=== PATIENT | male | born 1945 | race Caucasian/White ===

== ENCOUNTER 2016-07-10 20:08 | Emergency (ER) | payer MEDICARE ==
[~2016-07-10] VITALS: Ht 170.2 cm; Wt 84.1 kg
[~2016-07-10 20:08] MED LIST: ACET325T51 PEG; ARFO15VI2 IH; BUDE0.5A2 INHALATION; DILT90TA PEG; IPRA3AMP IH; LEVO75TA4 PEG; LISI10TA PEG; MONT10TA23 PEG; OMEP20CA11 PEG; ONDA4TAB9 PO; PRAV20TA2 PEG; TAMS0.4C98 PEG; WARF5TAB7 PEG; WARF7.5T4 PEG; ZIT250 PO
[2016-07-10 20:25] VITALS: BP 145/78; PULSE 95; RESP 18; O2SAT 96
[2016-07-10 21:00] LABS: APPEARANCE,URINE TURBID (CLEAR,HAZY); COLOR,URINE BLOODY (YELLOW); OCCULT BLOOD,URINE LARGE (NEGATIVE); UROBILINOGEN,URINE NORMAL (NORMAL)
--- NOTE | 2016-07-10 22:17 | ED.REPORT ---
HPI-General Illness Date of Service Jul 10, 2016 ED Provider: Dar Chaidez MD History of Present Illness: Patient is a 70 y.o. M with past medical history CVA, dysphagia requireing tub feedings, atrial fibrilation, CAD. He Presents to ED with his and son who report a two day history of urinary frequency, patient stated he felt a tickle with urination, family members noted blood in urine today. Assocaited with watery diarrhea without blood. Denies fever, chills, stomach pain, nausea, vomiting. Nursing Notes Stated Complaint: BLOOD IN URINE Chief Complaint: General Complaint Nursing Notes Reviewed: Yes Allergies: Coded Allergies: cephalexin (Verified Allergy, Intermediate, 07/10/16) quetiapine (Verified Allergy, Intermediate, 07/10/16) CONFUSION Scheduled Arformoterol Tartrate (Brovana) 15 Mcg/2 Ml Vial.neb 15 MCG IH BID Azithromycin (Zithromax) 250 Mg Tablet 500 MG PO DAILY Budesonide Neb Soln (Budesonide Neb Soln) 0.5 Mg/2 Ml Neb 2 ML INHALATION BID Ciprofloxacin (Ciprofloxacin) 250 Mg/5 Ml Kiara.mc.rec 250 MG PO BID Diltiazem (Diltiazem) 90 Mg Tablet 90 MG PEG QID Ipratropium/Albuterol Sulfate (Iprat-Albut 0.5-3(2.5) mg/3 mL Inhalant Soln) 3 Ml Ampul.neb 3 ML IH QID Levothyroxine (Levothyroxine) 75 Mcg Tablet 75 MCG PEG QAM Lisinopril (Lisinopril) 10 Mg Tablet 20 MG PEG QAM Montelukast (Montelukast) 10 Mg Tablet 10 MG PEG HS Omeprazole (Omeprazole) 20 Mg Capsule. 20 MG PEG BID Pravastatin (Pravastatin) 20 Mg Tablet 20 MG PEG HS Tamsulosin (Flomax) 0.4 Mg Capsule 0.4 MG PEG HS Warfarin Sodium (Warfarin Sodium) 5 Mg Tablet 5 MG PEG ,,, Warfarin Sodium (Warfarin Sodium) 7.5 Mg Tablet 7.5 MG PEG MWF Scheduled PRN Acetaminophen (Acetaminophen) 325 Mg Tablet 325 MG PEG Q4H PRN PRN For Pain Ondansetron ODT (Zofran ODT) 4 Mg Tablet 4 MG PO Q4H PRN PRN For Nausea General Time Seen by MD: 21:30 Chief Complaint Urinary frequency blood in urine noticed today by family Hx Obtained From: Spouse, Son Unable to Obtain Hx: Patient condition (dysphagic) Arrived By: Wheelchair Sudden in Onset?: Yes Onset Occurred: 2 days ago Symptom Duration: Since onset Severity: Current: No pain currently Severity: Maximum: No pain Past Medical History Past Medical History Dysphagia and Dysphasia secondary to CVA. (Patient with trach and PEG as a result) Atrial Fibrillation (on warfarin as of 05/31/15) HTN. Asthma. Reports: Asthma, Hypertension Past Surgical History Tracheostomy Percutaneous gastrostomy tube Reports: Cholecystectomy, Tonsillectomy Family History Reports: Coronary artery disease, Diabetes mellitus Smoking History Former Smoker Social History Alcohol Use: Denies alcohol use Other Social History: Good social support, , Local resident Ambulatory Status Wheelchair Review of Systems A comprehensive review of systems was conducted with the patient and found to be negative except as above in the History of Present Illness. Unable to Obtain ROS Patient condition Full Review of Systems Constitutional: Reports: Chills, Fever, Denies: Fatigue Respiratory: Reports: Prod cough, clear, Denies: Dyspnea on exertion, Hemoptysis Cardiovascular: Reports: Orthopnea, Palpitations, Parox nocturnal dyspnea, Denies: Chest pain, Dyspnea on exertion, Edema GI: Reports: Diarrhea, Denies: Abdominal pain, Bloody/tarry stool, Nausea, Vomiting Male: Reports Dysuria, Reports Hematuria, Reports Urinary frequency, Reports Urinary urgency, Denies Flank pain Complete sys rev & neg: except as marked. Physical Exam Vital Signs Vital Signs Date Time Temp Pulse Resp B/P Pulse Ox O2 Delivery O2 Flow Rate FiO2 07/10/16 23:47 37.3 85 18 138/95 95 Room Air 07/10/16 22:42 37.3 85 18 138/95 95 Room Air 07/10/16 20:25 37.0 95 18 145/78 96 Room Air General/Constitutional: Well-developed, Well-nourished Head / Eyes: Atraumatic, Normocephalic, PERRL ENT: Mucous membranes moist, Conjunctiva normal, No scleral icterus Neck: Supple, Non-tender, Full range of motion Respiratory: Breath sounds normal, No respiratory distress Cardiovascular: Regular rate & rhythm, Heart sounds normal, Intact distal pulses Abdomen / GI: Soft, Non-tender, No guarding, No rebound Back: No CVA tenderness Skin: Warm, Dry, No cyanosis Neurologic: Alert, Oriented, Nonfocal Tracheostomy present patent without erythema PEG tube present, patent no erythema noted Interpretation & Diagnostics Lab Results Interpretation Result Diagram: 07/10/16221907/10/162219 Test 07/10/16 20:39 07/10/16 22:20 Urine Color Bloody (YELLOW) Urine Appearance Turbid (CLEAR,HAZY) Urine pH 7.0 (5.0-8.0) Urine Specific [place] 1.010 (1.003-1.035) Urine Protein 100mg/dL (NEG,TRACE) Urine Glucose (UA) Negativemg/dL (NEGATIVE) Urine Ketones Negativemg/dL (NEGATIVE) Urine Occult Blood Large (NEGATIVE) Urine Nitrite Negative (NEGATIVE) Urine Bilirubin Negative (NEGATIVE) Urine Urobilinogen Normalmg/dL (NORMAL) Urine Leukocyte Esterase Moderate (NEGATIVE) Urine RBC >50/hpf (0-2) Urine WBC 11-50/hpf (0-5) Urine Epithelial Cells Occasional/hpf (NONE-MOD) Urine Crystals None seen (NONE SEEN) Urine Bacteria Many/hpf (NONE-FEW) Urine Hyaline Casts None/lpf (NONE) Urine Granular Casts None seen (NONE SEEN) Urine Waxy Casts None seen (NONE SEEN) Urine Red Blood Cell Casts None seen (NONE SEEN) Urine White Blood Cell Casts None seen (NONE SEEN) Urine Mucus None seen (None Seen) Urine Trichomonas None seen (NONE SEEN) Urine Yeast None (NONE SEEN) Urinalysis Comment None Urine Culture Reflexed Indicated White Blood Count 12.5th/mm3 (3.8-10.1) Red Blood Count 4.76mil/mm3 (4.40-5.80) Hemoglobin 15.9g/dL (13.8-17.2) Hematocrit 46.6% (41.0-50.0) Mean Corpuscular Volume 97.9fL (81-100) Mean Corpuscular Hemoglobin 33.4pg (27.0-35.0) Mean Corpuscular Hemoglobin Concent 34.1% (32.0-37.0) Red Cell Distribution Width 12.9% (12.3-15.4) Platelet Count 156bil/L (150-400) Neutrophils (%) (Auto) 81.5% (40-74) Lymphocytes (%) (Auto) 9.9% (14-46) Monocytes (%) (Auto) 7.6% (4-12) Eosinophils (%) (Auto) 0.6% (0-5) Basophils (%) (Auto) 0.2% (0-3) Sodium Level 133mEq/L (134-144) Potassium Level 4.5mEq/L (3.5-5.2) Chloride Level 94mEq/L (97-108) Carbon Dioxide Level 27mmol/L (18-29) Blood Urea Nitrogen 17mg/dL (8-27) Creatinine 0.51mg/dL (0.76-1.27) Estimat Glomerular Filtration Rate 171mL/min (>59) Glucose Level 123mg/dL (60-99) Calcium Level 8.8mg/dL (8.5-10.1) Total Bilirubin 0.4mg/dL (0.0-1.2) Aspartate Amino Transf (AST/SGOT) 29U/L (0-50) Alanine Aminotransferase (ALT/SGPT) 25U/L (0-44) Alkaline Phosphatase 149U/L (25-160) Total Protein 6.7g/dL (6.4-8.4) Albumin 3.5g/dL (3.4-5.0) Hold Juan Top Tube Received (Received) Re-Eval/Medical Decision Med Decision/Clinical Course Patient is a 70 y.o. M with past medical history CVA, dysphagia requireing tub feedings, atrial fibrilation, CAD. Presents to ED with two day history of urinary frequency, patient stated he felt a tickle with urination, family members noted blood in urine today. 1. Blood in Urine DDx UTI, Kidney stone, maligancy r/o ANJU, CBC ordered, show signs of acute infection CMP ordered good kidney function GFR 171 UA with culture ordered, showed presence of bacturia Bladder scan ordered residual 87 ml Counseled Regarding: Diagnosis, Lab results, Need for follow-up, When/why to return to ED Discharge & Departure Primary Impression: UTI (urinary tract infection) Urinary tract infection type: acute cystitis Hematuria presence: with hematuria Qualified Code: N30.01 - Acute cystitis with hematuria Disposition: Home Discharge Condition All VS Reviewed: Yes Condition: Stable Additional Instructions: During your visit to [facility] we obtained blood work for infectious markers, hemoglobin levels, and electrolytes. Analysis of your urine showed presence of a urinary tract infection. We obtained scan of your bladder to determine if you are voiding completely. We will send you home with - 10 day course of Antibiotics (Ciprofloxacin) oral suspension Follow up with your PCP in one week. Do not hesitate to call emergency services or your primary care physician if you experience any of the following. -High unrelenting fevers. -Uncontrolled vomiting. -Severe hypertension. -Syncope or loss of consciousness. -Chest pain or severe shortness of breath. Referrals: Antony Bojorquez MD (PCP) 1 Week Attending Statement The patient was seen and examined together with Dr. Moody on 07/10/16 and I agree with the history, exam and plan as outlined in the note above. copies to: Antony Bojorquez MD, AARON J DO Jul 10, 2016 21:57 Dar Chaidez MD Jul 10, 2016 23:56
[2016-07-10 22:32] LABS: BASOPHILS % (AUTO) 0.2 % (0-3); EOSINOPHILS % (AUTO) 0.6 % (0-5); MONOCYTES % (AUTO) 7.6 % (4-12); Mean Corpuscular Hemoglobin 33.4 pg (27.0-35.0); Mean Corpuscular Volume 97.9 fL (81-100); NEUTROPHILS % (AUTO) 81.5 % (40-74); Platelet Count 156 bil/L (150-400)
[2016-07-10 22:42] VITALS: BP 138/95; PULSE 85; RESP 18; O2SAT 95
[2016-07-10] MEDS ORDERED: CIPR250S3 PO ×2 (23:23→23:34)
[2016-07-10 23:47] VITALS: BP 138/95; PULSE 85; RESP 18; O2SAT 95
== END 2016-07-10 23:47 | disposition home or self-care (01) ==
LOC: SED 20:08
DX: N30.01 Acute cystitis with hematuria (principal); B96.89 Other specified bacterial agents as the cause of diseases classified elsewhere; R19.7 Diarrhea, unspecified; I69.991 Dysphagia following unspecified cerebrovascular disease; I69.921 Dysphasia following unspecified cerebrovascular disease; I11.9 Hypertensive heart disease without heart failure; I48.91 Unspecified atrial fibrillation; J45.909 Unspecified asthma, uncomplicated; Z79.01 Long term (current) use of anticoagulants; Z87.891 Personal history of nicotine dependence

== ENCOUNTER 2016-09-08 15:43 | Emergency (ER) | payer MEDICARE ==
[~2016-09-08] VITALS: Ht 170.2 cm; Wt 76.4 kg
[~2016-09-08 15:43] MED LIST changes: +CIPR250S3 PO
[2016-09-08 16:05] VITALS: BP 135/76; PULSE 103; RESP 14; O2SAT 96
--- NOTE | 2016-09-08 16:50 | ED.REPORT ---
HPI- Male Date of Service Sep 08, 2016 ED Provider: Kranthi Weiss MD A 70 year old male with a history of CVA, dysphagia requiring tube feedings, atrial fibrillation, CAD and hypertension presents to the ED complaining of hematuria that began 2 days ago. Associated symptoms include increased urinary urgency, decreased urination output, constipation and insomnia for the past few days. Patient reports several previous UTI's. Patient was recently seen in the ED on 07/10 for a UTI and was discharged in good condition with a 10 day course of Ciprofloxacin. He denies any dysuria, fever, abdominal pain, nausea or vomiting. Patient currently taking Warfarin. His last INR was 2.1. Nursing Notes Stated Complaint: POSS UTI Chief Complaint: General Complaint Nursing Notes Reviewed: Yes Allergies: Coded Allergies: cephalexin (Verified Allergy, Intermediate, 07/10/16) quetiapine (Verified Allergy, Intermediate, 07/10/16) CONFUSION Scheduled Arformoterol Tartrate (Brovana) 15 Mcg/2 Ml Vial.neb 15 MCG IH BID Azithromycin (Zithromax) 250 Mg Tablet 500 MG PO DAILY Budesonide Neb Soln (Budesonide Neb Soln) 0.5 Mg/2 Ml Neb 2 ML INHALATION BID Ciprofloxacin (Ciprofloxacin) 250 Mg/5 Ml Kiara.mc.rec 250 MG PO BID Diltiazem (Diltiazem) 90 Mg Tablet 90 MG PEG QID Ipratropium/Albuterol Sulfate (Iprat-Albut 0.5-3(2.5) mg/3 mL Inhalant Soln) 3 Ml Ampul.neb 3 ML IH QID Levothyroxine (Levothyroxine) 75 Mcg Tablet 75 MCG PEG QAM Lisinopril (Lisinopril) 10 Mg Tablet 20 MG PEG QAM Montelukast (Montelukast) 10 Mg Tablet 10 MG PEG HS Omeprazole (Omeprazole) 20 Mg Capsule.dr 20 MG PEG BID Pravastatin (Pravastatin) 20 Mg Tablet 20 MG PEG HS Sulfamethoxazole/Trimeth 800-160 mg (Bactrim DS) 1 Each Tablet 1 TABLET PO BID Tamsulosin (Flomax) 0.4 Mg Capsule 0.4 MG PEG HS Warfarin Sodium (Warfarin Sodium) 5 Mg Tablet 5 MG PEG Vincent,,Th,Sa Warfarin Sodium (Warfarin Sodium) 7.5 Mg Tablet 7.5 MG PEG MWF Scheduled PRN Acetaminophen (Acetaminophen) 325 Mg Tablet 325 MG PEG Q4H PRN PRN For Pain Ondansetron ODT (Zofran ODT) 4 Mg Tablet 4 MG PO Q4H PRN PRN For Nausea General Time Seen by MD: 16:47 Chief Complaint Other (Hematuria) Hx Obtained From: Patient Arrived By: Walk-in Onset Occurred: 2 days ago Symptom Duration: Since onset Associated with: Reports: UTI symptoms... (Hematuria), Denies: Abdominal pain, Nausea, Vomiting Pertinent Negative: Pt denies other symptoms Recent Healthcare: No recent doctor visit, No recent hospitalization Past Medical History Past Medical History Notes: PCP: Dr. Torres Past Medical History Dysphagia and Dysphasia secondary to CVA. (Patient with trach and PEG as a result) Atrial Fibrillation (on warfarin as of 05/31/15) Hypertension Asthma. Past Surgical History Tracheostomy Percutaneous gastrostomy tube Reports: Cholecystectomy, Tonsillectomy Family History Reports: Coronary artery disease, Diabetes mellitus Smoking History Former Smoker Social History Alcohol Use: Denies alcohol use Other Social History: Good social support, , Local resident Ambulatory Status Wheelchair Review of Systems Constitutional: Denies: Chills, Fever GI: Reports: Constipation, Denies: Abdominal pain, Nausea, Vomiting Male: Reports Hematuria, Reports Urinary urgency, Reports Urination decreased, Denies Dysuria Complete sys rev & neg: except as marked. Physical Exam Initial Vital Signs Vital Signs (First) Date Time Temp Pulse Resp B/P Pulse Ox O2 Delivery O2 Flow Rate FiO2 09/08/16 16:05 36.9 103 14 135/76 96 Room Air Initial VS: Reviewed Head / Eyes: Atraumatic, Normocephalic, PERRL Neck: Supple, Non-tender, Full range of motion Extremities: Vascular intact, Neuro intact, No swelling, No tenderness Skin: Warm, Dry, No cyanosis Neurologic: Alert, Oriented, Nonfocal Psychiatric: Mood/affect normal, Behavior normal, Normal thought content Male Genitourinary: Inspection NL, Penis NL (Uncircumcised ), Testes NL General/Constitutional: Awake, Alert, No acute distress Abdomen: Atraumatic, Soft, Non-tender ABDOMEN: No bladder distension Back: Atraumatic, Inspection NL, No CVA tenderness Interpretation & Diagnostics Lab Results Interpretation Result Diagram: 09/08/16 1706 Test 09/08/16 16:42 09/08/16 17:06 Urine Color Dark yellow (YELLOW) Urine Appearance Cloudy (CLEAR,HAZY) Urine pH 7.5 (5.0-8.0) Urine Specific [place] 1.015 (1.003-1.035) Urine Protein 100mg/dL (NEG,TRACE) Urine Glucose (UA) Negativemg/dL (NEGATIVE) Urine Ketones Negativemg/dL (NEGATIVE) Urine Occult Blood Large (NEGATIVE) Urine Nitrite Negative (NEGATIVE) Urine Bilirubin Negative (NEGATIVE) Urine Urobilinogen Normalmg/dL (NORMAL) Urine Leukocyte Esterase Small (NEGATIVE) Urine RBC Packed/hpf (0-2) Urine WBC 11-50/hpf (0-5) Urine Epithelial Cells Few/hpf (NONE-MOD) Urine Crystals None seen (NONE SEEN) Urine Bacteria None/hpf (NONE-FEW) Urine Hyaline Casts None/lpf (NONE) Urine Granular Casts None seen (NONE SEEN) Urine Waxy Casts None seen (NONE SEEN) Urine Red Blood Cell Casts None seen (NONE SEEN) Urine White Blood Cell Casts None seen (NONE SEEN) Urine Mucus None seen (None Seen) Urine Trichomonas None seen (NONE SEEN) Urine Yeast None (NONE SEEN) Urine Culture Reflexed Indicated White Blood Count 10.7th/mm3 (3.8-10.1) Red Blood Count 4.75mil/mm3 (4.40-5.80) Hemoglobin 15.7g/dL (13.8-17.2) Hematocrit 46.6% (41.0-50.0) Mean Corpuscular Volume 98.1fL (81-100) Mean Corpuscular Hemoglobin 33.1pg (27.0-35.0) Mean Corpuscular Hemoglobin Concent 33.7% (32.0-37.0) Red Cell Distribution Width 13.0% (12.3-15.4) Platelet Count 160bil/L (150-400) Neutrophils (%) (Auto) 84.1% (40-74) Lymphocytes (%) (Auto) 7.9% (14-46) Monocytes (%) (Auto) 6.9% (4-12) Eosinophils (%) (Auto) 0.7% (0-5) Basophils (%) (Auto) 0.2% (0-3) Prothrombin Time 19.8sec (8.1-12.5) Prothromb Time International Ratio 1.83ratio Hold Juan Top Tube Received (Received) Lab Results Interpretation: URINE DIP SP gravity 1.010 pH 7 Leukocytes + Nitrites + Proteins +++ Glucose normal Ketones + Urobilinogen - Bilirubin - Blood 250+ Hemoglobin 250 Re-Eval/Medical Decision Med Decision/Clinical Course 70 year old male with good renal function based on recent labs. Has cystitis, will treat with bactrimx5 days Re-Evaluation/Progress : Time of Eval: 18:20 Patient Status: Condition improved Re-Evaluation/Progress Note: Family is informed of the patient's lab results and intended treatment plan. All of the patient's 's questions are addressed. They agree with plan to discharge with antibiotics and follow up with PCP. Counseled Regarding: Diagnosis, Lab results, Need for follow-up, When/why to return to ED Discharge & Departure Impression: Primary Impression: UTI (urinary tract infection) Urinary tract infection type: site unspecified Hematuria presence: with hematuria Qualified Code: N39.0 - Urinary tract infection, site not specified Disposition: Home Discharge Condition All VS Reviewed: Yes Condition: Improved Patient Instructions: Urinary Tract Infection in Men (ED) Additional Instructions: Thank you for trusting us with your care this afternoon. Your emergency department evaluation today included interview, examination and lab work. Your lab results are indicative of a urinary tract infection and I believe this is the likely cause of your symptoms. We will start trimethoprim sulfa one twice daily for 5 days. get adequate fluids to keep urine dilute and keep clots from forming in bladder. We checked INR, it is 1.83, very close to desired range. You should follow-up with your primary doctor in the next week for a recheck. You should return to the ED immediately if you develop fever, chills, vomiting, inability to urinate or any other concerning signs or symptoms. Thank you for letting us partake in your care today. Referrals: Antony Bojorquez MD (PCP) Simone Torres MD Attestation Portions of this note were transcribed by Valerio Perrin. I, Dr. Weiss personally performed the history, physical exam and medical decision-making; I reviewed and confirmed the accuracy of the information in the transcribed note. Signed by: Freddie Bhatti, 09/08/16 [id number]. copies to: Simone Torres MD, Donald L MD Sep 08, 2016 16:50 VALERIO PERRIN Sep 08, 2016 16:57
[2016-09-08 17:16] LABS: APPEARANCE,URINE CLOUDY (CLEAR,HAZY); COLOR,URINE DARK YELLOW (YELLOW); PH,URINE 7.5 (5.0-8.0)
[2016-09-08 17:17] LABS: OCCULT BLOOD,URINE LARGE (NEGATIVE); UROBILINOGEN,URINE NORMAL (NORMAL)
[2016-09-08 17:19] LABS: BASOPHILS % (AUTO) 0.2 % (0-3); EOSINOPHILS % (AUTO) 0.7 % (0-5); MONOCYTES % (AUTO) 6.9 % (4-12); Mean Corpuscular Hemoglobin 33.1 pg (27.0-35.0); Mean Corpuscular Volume 98.1 fL (81-100); NEUTROPHILS % (AUTO) 84.1 % (40-74); Platelet Count 160 bil/L (150-400)
[2016-09-08 17:35] LABS: INR 1.83 ratio
[2016-09-08] MEDS ORDERED: Trimethoprim-Sulfa 160 mg-800 mg Tablet PO ONE (17:55)
[2016-09-08] MEDS ORDERED: SULF1TAB7 PO (18:18)
[2016-09-08 18:26] VITALS: BP 135/76; PULSE 103; RESP 14; O2SAT 96
== END 2016-09-08 18:26 | disposition home or self-care (01) ==
LOC: SED 15:43
DX: N39.0 Urinary tract infection, site not specified (principal); I11.9 Hypertensive heart disease without heart failure; I48.91 Unspecified atrial fibrillation; J45.909 Unspecified asthma, uncomplicated; Z90.49 Acquired absence of other specified parts of digestive tract; Z79.01 Long term (current) use of anticoagulants; Z87.891 Personal history of nicotine dependence; Z88.8 Allergy status to other drugs, medicaments and biological substances

== ENCOUNTER 2016-09-14 15:18 | Emergency (ER) | payer MEDICARE ==
[~2016-09-14] VITALS: Ht 170.2 cm; Wt 80.9 kg
[~2016-09-14 15:18] MED LIST changes: +SULF1TAB7 PO
[2016-09-14 15:38] VITALS: BP 125/71; PULSE 80; RESP 18; O2SAT 95
[2016-09-14 16:29] LABS: APPEARANCE,URINE SLIGHTLY CLOUDY (CLEAR,HAZY); COLOR,URINE YELLOW (YELLOW); OCCULT BLOOD,URINE LARGE (NEGATIVE); UROBILINOGEN,URINE NORMAL (NORMAL)
--- NOTE | 2016-09-14 16:48 | ED.REPORT ---
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 Associated symptoms include hematuria, weakness, and increased urinary urgency. Per , the abx he was prescribed improved his hematuria but not his urgency until his symptoms fully resumed this morning. He denies vomiting, fevers, back pain, chest pain, SOB, or any other symptoms. He was seen in the ED on 09/08/16 (1 week ago) with the same complaints. He was seen 2 days ago for hematuria with increased urinary urgency and frequency as well as general discomfort. He has good renal function based on recent labs. He was dx with a UTI and given a 5 day course of Bactrim. pcp Linus elena Nursing Notes Stated Complaint: UTI SYMPTOMS Chief Complaint: Male Abdominal Pain Nursing Notes Reviewed: Yes Allergies: Coded Allergies: cephalexin (Verified Allergy, Intermediate, 09/14/16) quetiapine (Verified Allergy, Intermediate, 09/14/16) CONFUSION Scheduled Arformoterol Tartrate (Brovana) 15 Mcg/2 Ml Vial.neb 15 MCG IH BID Azithromycin (Zithromax) 250 Mg Tablet 500 MG PO DAILY Budesonide Neb Soln (Budesonide Neb Soln) 0.5 Mg/2 Ml Neb 2 ML INHALATION BID Ciprofloxacin (Ciprofloxacin) 250 Mg/5 Ml [facility]..rec 250 MG PO BID Diltiazem (Diltiazem) 90 Mg Tablet 90 MG PEG QID Ipratropium/Albuterol Sulfate (Iprat-Albut 0.5-3(2.5) mg/3 mL Inhalant Soln) 3 Ml Ampul.neb 3 ML IH QID Levothyroxine (Levothyroxine) 75 Mcg Tablet 75 MCG PEG QAM Lisinopril (Lisinopril) 10 Mg Tablet 20 MG PEG QAM Montelukast (Montelukast) 10 Mg Tablet 10 MG PEG HS Omeprazole (Omeprazole) 20 Mg Capsule. 20 MG PEG BID Pravastatin (Pravastatin) 20 Mg Tablet 20 MG PEG HS Sulfamethoxazole/Trimeth 800-160 mg (Bactrim DS) 1 Each Tablet 1 TABLET PO BID Tamsulosin (Flomax) 0.4 Mg Capsule 0.4 MG PEG HS Warfarin Sodium (Warfarin Sodium) 5 Mg Tablet 5 MG PEG Vincent,,,Sa Warfarin Sodium (Warfarin Sodium) 7.5 Mg Tablet 7.5 MG PEG MWF Scheduled PRN Acetaminophen (Acetaminophen) 325 Mg Tablet 325 MG PEG Q4H PRN PRN For Pain Ondansetron ODT (Zofran ODT) 4 Mg Tablet 4 MG PO Q4H PRN PRN For Nausea Phenazopyridine (Phenazopyridine) 100 Mg Tablet 100 MG PO TID PRN PRN For Pain General Time Seen by MD: 16:45 Chief Complaint Other (UTI symptoms ) Hx Obtained From: Patient, Spouse Arrived By: Walk-in Recent Healthcare: Recent doctor visit Similar Sx Previous: Yes Past Medical History Past Medical History Notes: PCP: Dr. Elena Past Medical History Dysphagia and Dysphasia secondary to CVA. (Patient with trach and PEG as a result, significant R sided deficits) Atrial Fibrillation (on warfarin as of 05/31/15) Hypertension Asthma. Past Surgical History Tracheostomy Percutaneous gastrostomy tube Reports: Cholecystectomy, Tonsillectomy Family History Reports: Coronary artery disease, Diabetes mellitus Smoking History Former Smoker Social History Alcohol Use: Denies alcohol use Other Social History: Good social support, , Local resident Ambulatory Status Wheelchair Review of Systems Full Review of Systems Constitutional: Reports: Weakness - generalized, Denies: Fever Respiratory: Denies: Shortness of breath Cardiovascular: Denies: Chest pain GI: Denies: Vomiting Male: Reports Hematuria, Reports Urinary urgency Musculoskeletal: Denies: Back pain Complete sys rev & neg: except as marked. Physical Exam Vital Signs Vital Signs Date Time Temp Pulse Resp B/P Pulse Ox O2 Delivery O2 Flow Rate FiO2 09/14/16 15:38 36.9 80 18 125/71 95 Room Air Initial VS: Reviewed General/Constitutional: Well-developed, Well-nourished Head / Eyes: Atraumatic, Normocephalic Skin: Warm, Dry Neck: Supple Trache tube present. No redness, warmth, or swelling. Wheezing / Retractions: Positive: Wheezing expiratory Good air movement bilaterally. Abdomen: Soft, Non-tender RUQ well healed surgical scar LUQ feeding tube. No redness, warmth, swelling. Back: Inspection NL No flank tenderness Male Genitourinary: No penile discharge Uncircumcised. Remote trauma to glands from catheters . No testicular swelling or lye. No skin breakdown, erythema, or signs of infection. Neurologic: Oriented X3 R sided paralysis- baseline Neuro otherwise nL Interpretation & Diagnostics Lab Results Interpretation Result Diagram: 09/14/16 1750 09/14/16 1750 Test 09/14/16 15:46 09/14/16 17:50 Urine Color Yellow (YELLOW) Urine Appearance Slightly cloudy Urine pH 7.0 (5.0-8.0) Urine Specific [place] 1.015 (1.003-1.035) Urine Protein 100mg/dL (NEG,TRACE) Urine Glucose (UA) Negativemg/dL (NEGATIVE) Urine Ketones Negativemg/dL (NEGATIVE) Urine Occult Blood Large (NEGATIVE) Urine Nitrite Negative (NEGATIVE) Urine Bilirubin Negative (NEGATIVE) Urine Urobilinogen Normalmg/dL (NORMAL) Urine Leukocyte Esterase Moderate (NEGATIVE) Urine RBC Packed/hpf (0-2) Urine WBC Packed/hpf (0-5) Urine Epithelial Cells Few/hpf (NONE-MOD) Urine Crystals None seen (NONE SEEN) Urine Bacteria None/hpf (NONE-FEW) Urine Hyaline Casts None/lpf (NONE) Urine Granular Casts None seen (NONE SEEN) Urine Waxy Casts None seen (NONE SEEN) Urine Red Blood Cell Casts None seen (NONE SEEN) Urine White Blood Cell Casts None seen (NONE SEEN) Urine Mucus None seen (None Seen) Urine Trichomonas None seen (NONE SEEN) Urine Yeast None (NONE SEEN) Urine Culture Reflexed Indicated White Blood Count 9.0th/mm3 (3.8-10.1) Red Blood Count 4.84mil/mm3 (4.40-5.80) Hemoglobin 16.1g/dL (13.8-17.2) Hematocrit 47.1% (41.0-50.0) Mean Corpuscular Volume 97.3fL (81-100) Mean Corpuscular Hemoglobin 33.3pg (27.0-35.0) Mean Corpuscular Hemoglobin Concent 34.2% (32.0-37.0) Red Cell Distribution Width 13.0% (12.3-15.4) Platelet Count 166bil/L (150-400) Neutrophils (%) (Auto) 81.5% (40-74) Lymphocytes (%) (Auto) 10.4% (14-46) Monocytes (%) (Auto) 7.0% (4-12) Eosinophils (%) (Auto) 0.7% (0-5) Basophils (%) (Auto) 0.2% (0-3) Prothrombin Time 41.5sec (8.1-12.5) Prothromb Time International Ratio 3.77ratio Sodium Level 131mEq/L (134-144) Potassium Level 5.3mEq/L (3.5-5.2) Chloride Level 94mEq/L (97-108) Carbon Dioxide Level 24mmol/L (18-29) Blood Urea Nitrogen 18mg/dL (8-27) Creatinine 0.60mg/dL (0.76-1.27) Estimat Glomerular Filtration Rate 142mL/min (>59) Glucose Level 99mg/dL (60-99) Lactic Acid Level 1.0mmol/L (0.4-2.0) Calcium Level 9.5mg/dL (8.5-10.1) Magnesium Level 2.0mg/dL (1.6-2.6) Total Bilirubin 0.4mg/dL (0.0-1.2) Aspartate Amino Transf (AST/SGOT) 36U/L (0-50) Alanine Aminotransferase (ALT/SGPT) 23U/L (0-44) Alkaline Phosphatase 143U/L (25-160) Total Protein 7.2g/dL (6.4-8.4) Albumin 3.7g/dL (3.4-5.0) Lipase 29U/L (13-60) Lab Results Interpretation: Urine: nitrite neg mod leukocytes no bacteria WBC and RBC present (packed) large occult blood cloudy CBC unremarkable Chem: Sadium 131 potassium 5.3 Otherwise nL Lipase in nL limit Lactic 1.0 INR 3.[address] Abd / Pelvis Interpretation IMPRESSION: Severe circumferential bladder wall thickening keeping with cystitis. Please clinically clinically and with urinalysis. While neoplasm is thought to be less likely etiology, if clinically warranted, this could be excluded with cystoscopy No urolithiasis or evidence of urinary obstruction. Cardiomegaly. Enlarged prostate. Please correlate clinically and with biochemical data. Dictated by: Chris Hoff M.D. on 09/14/2016 at 19:50 Approved by: Chris Hoff M.D. 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 Associated symptoms include hematuria, weakness, and increased urinary urgency. Per , the abx he was recently prescribed improved his hematuria but not his urgency until his symptoms fully resumed this morning. He denies vomiting, fevers, back pain, chest pain, SOB, or any other symptoms. He was seen in the ED on 09/08/16 (1 week ago) with the same complaints. He was seen 2 days ago for hematuria with increased urinary urgency and frequency as well as general discomfort. He has good renal function based on recent labs. He was dx with a UTI and given a 5 day course of Bactrim. Prior to that he completed a course of oral ciprofloxacin. Emergency Department he is afebrile, hemodynamically stable and nontoxic in appearance. Urine: nitrite neg mod leukocytes no bacteria WBC and RBC present (packed) large occult blood cloudy CBC unremarkable Chem: Sodium 131 potassium 5.3 Otherwise nL Lipase in nL limit Lactic 1.0 INR 3.[address] abd pelvis: Severe circumferential bladder wall thickening keeping with cystitis. Please clinically clinically and with urinalysis. While neoplasm is thought to be less likely etiology, if clinically warranted, this could be excluded with cystoscopy No urolithiasis or evidence of urinary obstruction. Cardiomegaly. Enlarged prostate. Please correlate clinically and with biochemical data. My initial concern was for possible pyelonephritis or renal abscess. There is no evidence thereof on the above imaging studies. He is without leukocytosis or fever and is nontoxic in appearance. His renal function is good. Abdominal examination is relatively benign without any findings suggestive of an acute surgical process. While he does have hematuria I see no evidence of kidney stones. He does have significant bladder wall thickening and etiology at this time remains unclear. Given that he is received multiple courses of antibiotics without any significant improvement in his symptoms and that his previous urine culture was negative I do not feel that treating him with another course of antibiotics is clinically indicated at this time. I will send his urine for culture and if it grows a single organism he will be contacted and consulted antibiotics. I treated him with phenazopyridine and prescribed this medication for use as needed. I feel that he would benefit most from a referral to urology for possible cystoscopy and further workup of his ongoing urinary complaints and bladder findings as above. He reported improvement in his symptoms after phenazopyridine and I feel that he is appropriate for discharge and outpatient management. Prior to discharge follow- up and return precautions were reviewed in detail with the patient who verbalized understanding and agreement with the plan. The patient was discharged in stable condition. Time of Eval: 20:23 Re-Evaluation/Progress Note: Discussed plan for discharge. Patient understands and agrees with plan. All questions addressed at this time. Discharge & Departure Primary Impression: Cystitis Additional Impressions: Hematuria Bladder wall thickening History of CVA (cerebrovascular accident) Dysuria Urinary frequency Disposition: Home Discharge Condition All VS Reviewed: Yes Condition: Stable Additional Instructions: Thank you for seeking care at the emergency room. It is difficult for us to make definitive diagnoses in the ED but we believe that you are experiencing cystitis. Please take medications as prescribed. Our primary goal today in the ED was to evaluate you for any life-threatening conditions. Your evaluation was reassuring. You should follow-up with your primary doctor in the next week. We have referred him to urology. Please call to make an appointment tomorrow. You should return to the ED immediately if you develop worsening symptoms, fevers, vomiting, cough, shortness of breath, chest pain, lightheadedness, weakness or any other concerning signs or symptoms. Thank you for letting us partake in your care today. Referrals: Linus Elena DO (PCP) Padmini Rodriguez MD Scribe Attestation Portions of this note were transcribed by Lauren Worley. I, Dr. Vásquez personally performed the history, physical exam and medical decision-making; I reviewed and confirmed the accuracy of the information in the transcribed note. Signed by: Lauren Worley 09/14/[id number] copies to: Linus Elena Beck O MD Sep 14, 2016 16:48 LAUREN WORLEY Sep 14, 2016 17:18
[2016-09-14 17:57] LABS: BASOPHILS % (AUTO) 0.2 % (0-3); EOSINOPHILS % (AUTO) 0.7 % (0-5); Mean Corpuscular Hemoglobin 33.3 pg (27.0-35.0); Mean Corpuscular Volume 97.3 fL (81-100); NEUTROPHILS % (AUTO) 81.5 % (40-74); Platelet Count 166 bil/L (150-400)
[2016-09-14 18:16] LABS: INR 3.77 ratio
--- NOTE | 2016-09-14 19:57 | DRSVH ---
PROCEDURE: CT ABDOMEN AND PELVIS WITH CONTRAST ([id number]) INDICATIONS: back pain, hematuria TECHNIQUE: After the administration of intravenous contrast, 5 mm thick sections acquired from the diaphragm to the symphysis. 5 mm coronal and sagittal reformats were acquired. For radiation dose reduction, the following was used: automated exposure control, adjustment of mA and/or kV according to patient siz e. COMPARISON: None. FINDINGS: Image quality: Suboptimal due to uncontrollable motion. ABDOMEN: Lung bases: Lung bases are clear. Heart size is enlarged. Solid organs: Liver and spleen are normal in size and enhancement. Gallbladder surgically absent an d multiple clips are present. Biliary system is non dilated. Pancreas enhances normally. No adrena l nodules. Kidneys demonstrate normal size and enhancement, without hydronephrosis. Presumed left r enal cyst although too small to characterize. Peritoneum and bowel: Incidentally noted is percutaneous G-tube Bowel loops demonstrate normal wall thickness and caliber. No free fluid or air. The appendix grossly unremarkable. The rectum contains stool and is otherwise unremarkable. Nodes and vessels: No retroperitoneal or mesenteric adenopathy by size criteria. Aorta and inferior vena cava are normal in size. Miscellaneous: No ventral hernias. PELVIS: Genitourinary: Severe circumferential bladder wall thickening. Enlarged prostate Miscellaneous: No inguinal hernias or adenopathy. Bones: Minimal anterior wedging of a lower thoracic vertebral bodies which is age-indeterminate could be physiologic IMPRESSION: Severe circumferential bladder wall thickening keeping with cystitis. Please clinically clinically an d with urinalysis. While neoplasm is thought to be less likely etiology, if clinically warranted, thi s could be excluded with cystoscopy No urolithiasis or evidence of urinary obstruction. Cardiomegaly. Enlarged prostate. Please correlate clinically and with biochemical data. Dictated by: Chris Hoff M.D. on 09/14/2016 at 19:50 Approved by: Chris Hoff M.D. on 09/14/2016 at 19:55
[2016-09-14] MEDS ORDERED: PHEN-773 PO (20:21)
[2016-09-14] MEDS ORDERED: Phenazopyridine 97.5 mg Tablet PO ONE (20:25)
== END 2016-09-14 20:25 | disposition home or self-care (01) ==
LOC: SED 15:18
DX: N30.90 Cystitis, unspecified without hematuria (principal); R30.0 Dysuria; R31.9 Hematuria, unspecified; R35.0 Frequency of micturition; I69.391 Dysphagia following cerebral infarction; I69.321 Dysphasia following cerebral infarction; I69.392 Facial weakness following cerebral infarction; I69.351 Hemiplegia and hemiparesis following cerebral infarction affecting right dominant side; I11.9 Hypertensive heart disease without heart failure; I48.91 Unspecified atrial fibrillation; E78.5 Hyperlipidemia, unspecified; J45.909 Unspecified asthma, uncomplicated; Z79.01 Long term (current) use of anticoagulants; Z87.891 Personal history of nicotine dependence; Z90.49 Acquired absence of other specified parts of digestive tract; Z88.1 Allergy status to other antibiotic agents; Z88.8 Allergy status to other drugs, medicaments and biological substances; Z93.1 Gastrostomy status; Z93.0 Tracheostomy status
CPT/HCPCS: 36415; 74177; 80053; 81000; 83605; 83690; 83735; 85025; 85610; 87040; 87086; 99284; Q9967